=== PATIENT | male | born 1990 | race Hispanic/Latino ===

== ENCOUNTER 2017-07-20 10:16 | Emergency (ER) | payer OTHER ==
[~2017-07-20] VITALS: Ht 185.4 cm; Wt 122.5 kg
[2017-07-20] MEDS ORDERED: ATENOLOL50 MG PO (10:34)
[2017-07-20] MEDS ORDERED: ASPIR 8181 MG PO (10:34)
[2017-07-20] MEDS ORDERED: FLECAINIDE ACET50 MG PO (10:34)
[2017-07-20] MEDS ORDERED: ASPIRIN325 MG PO (10:34)
[2017-07-20 11:07] LABS: BASOPHILS % 0.5 % (0.0-1.0); EOSINOPHILS # (AUTO) 0.2 (0.0-0.4); EOSINOPHILS % 2.1 % (0.0-6.0); HEMATOCRIT 45.2 % (38.2-49.6); LYMPHOCYTES # (AUTO) 2.4 (1.0-3.2); LYMPHOCYTES % 29.9 % (18.0-39.1); MEAN CORPUSCULAR HEMOGLOBIN 28.9 pg (28-32); MEAN CORPUSCULAR HGB CONC 33.2 g/dL (31-35); MEAN CORPUSCULAR VOLUME 87.1 fL (81-99); MONOCYTES # (AUTO) 0.7 (0.2-0.8); MONOCYTES % 8.5 % (4.4-11.3); NEUTROPHILS # (AUTO) 4.8 (2.1-6.9); NEUTROPHILS % 58.8 % (38.7-80.0); PLATELET COUNT 292 x10e3/uL (140-360); RED BLOOD COUNT 5.19 x10e6/uL (4.3-5.7)
[2017-07-20 11:21] LABS: ALANINE AMINOTRANSFERASE 18 IU/L (0-55); ALBUMIN 4.2 g/dL (3.5-5.0); ALBUMIN/GLOBULIN RATIO 1.2 (0.8-2.0); ALKALINE PHOSPHATASE 56 IU/L (40-150); ANION GAP 13.3 mmol/L (8-16); BLOOD UREA NITROGEN 12 mg/dL (7-26); BUN/CREATININE RATIO 14 (6-25); CALCIUM 9.1 mg/dL (8.4-10.2); CARBON DIOXIDE 26 mmol/L (22-29); CHLORIDE 107 mmol/L (98-107); CREATINE KINASE 132 IU/L (30-200); CREATININE, SERUM 0.86 mg/dL (0.72-1.25); EST GLOMERULAR FILTRATION RATE > 60 ML/MIN (60-); GLUCOSE 81 mg/dL (74-118); POTASSIUM 4.3 mmol/L (3.5-5.1); SODIUM 142 mmol/L (136-145)
--- NOTE | 2017-07-20 11:44 | Diagnostic Imaging Report ---
PROCEDURE:CHEST SINGLE (PORTABLE) TECHNIQUE:Portable AP chest INDICATION:Chest palpitations COMPARISON:None. FINDINGS: Lungs are clear and symmetrically inflated. No pleural effusions. Normal heart size, mediastinal contour, and pulmonary vasculature for technique. Intact skeleton. CONCLUSION: Normal portable chest. Dictated by: Steve Doan M.D. on 07/20/2017 at 11:44 Electronically approved by: Steve Doan M.D. on 07/20/2017 at 11:44
[2017-07-20 12:15] VITALS: BP 116/86
== END 2017-07-20 12:22 | disposition home or self-care (01) ==
LOC: ER 10:16
DX: R00.2 Palpitations (principal); I48.91 Unspecified atrial fibrillation
CPT/HCPCS: 36415; 71045; 80053; 82550; 82553; 84484; 85025; 85379; 93005; 99284

== ENCOUNTER 2020-02-16 07:43 | Emergency (ER) | payer OTHER ==
[~2020-02-16] VITALS: Ht 185.4 cm; Wt 122.5 kg
[~2020-02-16 07:43] MED LIST: ASPIR 8181 MG PO; ASPIRIN325 MG PO; ATENOLOL50 MG PO; FLECAINIDE ACET50 MG PO
[2020-02-16] MEDS ORDERED: HYDROCODONE/APAP 7.5MG-325MG 1 EA TAB PO PRN (08:00)
[2020-02-16] MEDS ORDERED: KETOROLAC TROMETHAMINE 60 MG/2 ML VIAL IM ONE (08:00)
[2020-02-16] MEDS ORDERED: KETOROLAC TROMETHAMINE 60 MG/2 ML VIAL ONE (08:03)
--- NOTE | 2020-02-16 08:14 | Emergency Department Note ---
History of Present Illnes History of Present Illness Chief Complaint: Back Pain History of Present Illness This is a 29 year old male PATIENT IN FROM HOME WITH COMPLAINTS OF LOWER BACK PAIN RADIATING DOWN LEFT LEG. RATES PAIN 02/16. PATIENT STATES THAT IT STARTED WEDNESDAY AFTER WORK WHEN HE GOT INTO HIS TRUCK, HE WAS SEEN AT URGENT CARE WEDNESDAY AND GIVEN STEROIDS AND FLEXERIL, AND WENT TO THE CHIROPRACTOR YESTERDAY BUT THE PAIN IS GETTING WORSE. PATIENT ALERT AND ORIENTED, RESP EVEN AND NONLABORED, APPEARS IN NO DISTRESS, AMBULATORY WITH STEADY GAIT. 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 Any updates have been documented here. Past Medical History Recent Fever: No Clinical Suspicion of Infectio: No New/Unexplained Change in Ment: No Past Medical History: A-Fib Other Surgery: RIGHT ANKLE SURGERY Social History Smoking Cessation: Never Smoker Counseling Performed: No Alcohol Use: None Any Illegal Drug Use: No TB Exposure/Symptoms: No Physically hurt or threatened: No Family History Family history of heart diseas: No Other Last Tetanus: UTD Any Pre-Existing Lines (PICC,: No Review of Systems Review of Systems Constitutional: Reports no symptoms EENTM: Reports no symptoms Cardiovascular: Reports no symptoms Respiratory: Reports no symptoms Gastrointestinal: Reports no symptoms Genitourinary: Reports no symptoms Musculoskeletal: Reports as per HPI, Reports back pain Integumentary: Reports no symptoms Neurological: Reports no symptoms Psychological: Reports no symptoms Endocrine: Reports no symptoms Hematological/Lymphatic: Reports no symptoms Physical Exam Related Data Allergies: Coded Allergies: No Known Allergies (Unverified , 07/20/17) Triage Vital Signs Vital Signs Date Time Temp Pulse Resp B/P (MAP) Pulse Ox O2 Delivery O2 Flow Rate FiO2 02/16/20 07:47 97.6 75 18 133/91 100 Room Air Vital signs reviewed: Yes Physical Exam CONSTITUTIONAL Constitutional: Present well-developed, Present well-nourished HENT HENT: Present normocephalic, Present atraumatic, Present oropharynx clear/juan st, Present nose normal HENT L/R: Present left ext ear normal, Present right ext ear normal EYES Eyes: Reports PERRL, Reports conjunctivae normal NECK Neck: Present ROM normal PULMONARY Pulmonary: Present effort normal, Present breath sounds normal CARDIOVASCULAR Cardiovascular: Present regular rhythm, Present heart sounds normal, Present capillary refill normal, Present normal rate GASTROINTESTINAL Abdominal: Present soft, Present nontender, Present bowel sounds normal GENITOURINARY Genitourinary: Present exam deferred SKIN Skin: Present warm, Present dry MUSCULOSKELETAL Musculoskeletal: Present ROM normal, Present other (NEG SLR, NORMAL DTR'S, NORMAL STR/SENS) NEUROLOGICAL Neurological: Present alert, Present oriented x 3, Present DTRs normal, Present no gross motor or sensory deficits; Absent sensory deficit, Absent weakness PSYCHOLOGICAL Psychological: Present mood/affect normal, Present judgement normal Assessment & Plan Medical Decision Making MDM SCIATICA, NO HX OF TRAUMA Reassessment Reassessment CONTINUE MEDROL DOSE LAINEY, MARIAROSYN, PT HAS FLEXERIL, TYL #3 1 Q4H PRN (#16), F/U DR Dante ELLIS, ORTHO Assessment & Plan Final Impression: (1) Sciatica Depart Disposition: HOME, SELF-CARE Last Vital Signs Date Time Temp Pulse Resp B/P (MAP) Pulse Ox O2 Delivery O2 Flow Rate FiO2 02/16/20 07:47 97.6 75 18 133/91 100 Room Air Home Meds Reported Medications Aspirin (ASPIRIN) 325 Mg Tablet, 325 MG PO DAILY, #30 TAB 07/20/17 Atenolol (ATENOLOL) 50 Mg Tablet, 25 MG PO DAILY 07/20/17 Flecainide Acetate (FLECAINIDE ACETATE) 50 Mg Tablet, 50 MG PO BID 07/20/17 Medications in the ED Ketorolac Tromethamine 60 mg ONCE ONCE IM Last administered on 02/16/20at 07:56; Admin Dose 60 MG; Start 02/16/20 at 08:00; Stop 02/16/20 at 08:02; Status DC Acetaminophen/ Hydrocodone Bitart 1 ea NOW PRN PO MODERATE PAIN (4-6) Last administered on 02/16/20at 07:57; Admin Dose 1 EA; Start 02/16/20 at 08:00; Stop 02/23/20 at 07:59 Ketorolac Tromethamine 60 mg STK-MED ONCE .ROUTE ; Start 02/16/20 at 08:03; Stop 02/16/20 at 07:56; Status DC OMAYRA MENDOZA MD Feb 16, 2020 08:14
--- OUTSIDE RECORDS SUMMARY | 2020-02-16 08:20 | XMS REPORT | Continuity of Care Document ---
Author Author [facility] t Organization [facility] Address [address] [place] [address] Phone Unavailable Care Team Providers Care Maintenance Chief Name Role Phone GERARDO ISABEL MD, Lisa WEINER PCP MANEEVESMarita Mujica Attphys Unavailable Payers Payer Name Policy Type Policy Number Effective Date Expiration Date S ource Problems This patient has no known problems. Allergies, Adverse Reactions, Alerts Allergy Name Allergy Type Status Severity Reaction(s) Onset Date Inacti ve Date Treating Clinician Comments Source No Known Allergies DA Active U 2019-03-14 00:00:00 [facility] No Known Allergies DA Active U 2017-05-08 00:00:00 [facility] Medications Ordered Medication Name Filled Medication Name Start Date Stop Da te Current Medication? Ordering Clinician Indication Dosage Frequency Signature (SIG) Comments Components Source Aspirin 325 Mg Tablet Aspirin 325 Mg Tablet Yes 325 Daily [facility] Atenolol 50 Mg Tablet Atenolol 50 Mg Tablet Yes 25 Daily [facility] Flecainide Acetate 50 Mg Tablet Flecainide Acetate 50 Mg Tablet Yes 50 Twice A Day [facility] Aspirin (Aspir 81) 81 Mg Tablet.dr 81 Mg Oral Aspirin (Aspir 81) 81 Mg Tablet.dr 81 Mg Oral 2017-07-20 00:00:00 No 81 Da alexander [facility] Procedures This patient has no known procedures. Encounters Start Date/Time End Date/Time [facility]counter Type [facility] ID Source 2017-07-20 10:16:00 2017-07-20 12:22:00 Departed Emergency Room ER EUNICE GUERRERO [facility] [id number] [facility] Results Test Description Test Time Test Comments Results Result Comments Source STREPTOCOCCUS PCR SCREEN 2019-05-14 23:05:00 Test Item STREPTOCOCCUS DYSGALACTIAE (test code = STREPGC) NEGATIVE FOR G/C N EGATIVE STREPA MOLECULAR (test code = STREPAMOL) NEGATIVE FOR GRP A NEGATIV E - XR FLUOROSCOPY 0-60 [id number] 16:28:00 Name: DILLAN ALVAREZ : 1990 Age/S: 28 / M [address] [address] [place] Unit #: [id number] Loc: [place] [address] Phys: Bc Reeder MD Acct: [id number] Dis Date: Status: REG [facility] PHONE #: [phone] Exam Date: 03/28/2019 1600 FAX #: Reason: ORIF RIGHT ANKLE FX EXAMS: CPT: [id number] XR FLUOROSCOPY 0-60 MIN 99026 Fluoro Time: 56 DAP (Gy m2): Air Kerma (mGy): EXAMINATION: - XR FLUOROSCOPY 0-60 MIN. LOCATION: S 17. HISTORY: ORIF RIGHT ANKLE FX. TECHNIQUE: Intraoperative fluoroscopy was utilized during surgery. Total reference air kerma was 2.46 mGy. FINDINGS/ IMPRESSION: Intraoperative fluoroscopy was utilized during right ankle surgery. Please refer to operative report for detail. at 1628 Reported and signed by: Merle Jimenez M.D. CC: Bc Reeder MD PAGE 1 Signed Report Name: DILLAN ALVAREZ : 1990 Age/S: 28 / M [address] [address] [place] Unit #: [id number] Loc: [place] [address] Phys: Bc Reeder MD Acct: [id number] Dis Date: Status: REG [facility] PHONE #: [phone] Exam Date: 03/28/2019 1600 FAX #: Reason: ORIF RIGHT ANKLE FX EXAMS: CPT: [id number] XR FLUOROSCOPY 0-60 MIN 87874 Fluoro Time: 56 DAP (Gy m2): Air Kerma (mGy): < Continued> Technologist: Shanae Mittal, RT(R); Martha Navarrete RT(R) [facility] Date/Time: 03/28/2019 (9639) [email or web address] Orig Print D/T: S: 03/28/2019 (4884) PAGE 2 Signed Report DRUG SCREEN CO.[id number] 07:57:00* Test Item Value Reference Range Interpretation Comments DRUG SCREEN CO.CARE (test code = DAUCC) SENT TO [facility] BREATH ALCOHOL [id number] 07:57:00* Test Item Value Reference Range Interpretation Comments BREATH ALCOHOL TEST (test code = BAT2) SEE REPORT - XR ANKLE 2 VIEWS [id number] 22:11:00 FAX: Evelin Whaley MD [phone] [place]: St: REG Name: DILLAN CONNOLLY [facility] : [birth year] Age/S: 28/M [address] [facility] Unit #: [id number] Loc: [place] [address] Phys: Evelin Whaley MD Acct: [id number] Dis Date: Status: REG ER PHONE #: [phone] Exam Date: 03/14/20192201 FAX #: [phone] Reason: post reduction EXAMS: CPT CODE: [id number] XR ANKLE [address] [place] [address] REASON FOR EXAM: post reduction EXAM ORDER DATE: 03/14/2019 10:00 PM Ordering: Evelin Whaley MD Attending:Evelin Whaley MD Location: PROCEDURE: - XR ANKLE 2 VIEWS RT FINDI NGS: 3 views of the right ankle were obtained. Overlying casting material noted. Mild soft tissue swelling in the lateral malleolus. Again noted is the oblique fracture of the distal right fibula and the posterior fract ure of the distal right tibia IMPRESSION: Anatomical alignment o f the right ankle status post reduction Electronically Sujey d by Beau Shea on 03/14/2019 at 2211 Reported and sig franco by: Phong Shea M.D. CC: Evelin Whaley MD Technologist: Jose Tucker RT(R Trnscrd Date/Time/By: 03/14/2019 (2210) : By: MarkL Orig Print D/T: S: 03/14/2019 (1171) PAGE 1 Signed Report DRUG SCREEN CO.[id number] 19:26:00* Test Item Value Reference Range Interpretation Comments DRUG SCREEN CO.CARE (test code = DAUCC) BREATH ALCOHOL [id number] 19:26:00* Test Item Value Reference Range Interpretation Comments BREATH ALCOHOL TEST (test code = BAT2) SEE REPORT - XR ANKLE 3 + V [id number] 18:15:00 FAX: Stephan Coughlin NP [place]: B St: REG FAX: Evelin Whaley MD [phone] Name: DILLAN ALVAREZ [facility] : 1990 Age/S: 28/M [address] [facility] Unit #: [id number] Loc: [place] [address] Phys: Stephan Coughlin NP Acct: [id number] Dis Date: Status: REG ER PHONE #: [phone] Exam Date: 03/14/2019 1806 FAX #: [phone] Reason: R ankle eversion EXAMS: CPT CODE: [id number] XR ANKLE 3 + V RT 42726 REASON FOR EXAM: R ankle eversion EXAM ORDER DATE: 03/14/2019 5:43 PM Ordering Beau: Stephan Coughlin NP Location: PROCEDURE: - XR ANKLE 3 + V RT FINDINGS: 3 views of the right ankle were obtained. Oblique minimally displaced distal right fibular fracture at the ankle mortise level. Minimally displaced vertical fracture of the posterior right tibia at the joint space. IMPRESSION: Oblique fracture of the distal right fibula with disruption of the ankle mortise. Minimally displaced verti alfonso fracture of the posterior right tibia. Electronically Si gned by Beau Shea on 03/14/2019 at 1814 Reported and signed by: Phong Shea M.D. CC: Stephan Coughlin NP; Ijeoma Whaley MD Technologist: HOWARD PRADO Trncord Date/Time/By: 03/14/2019 (1814) : By: VondaVTL Orig Print D/T: S: 03/14/2019 (1817) PAGE 1 Signed Report - XR KNEE 3 V [id number] 18:13:00 FAX: Stephan Coughlin NP [place]: St: REG FAX: Evelin Whaley MD [phone] Name: DILLAN ALVAREZ [facility] : 1990 Age/S: 28/M [address] [facility] Unit #: [id number] Loc: [place] [address] Phys: Stephan Coughlin NP Acct: [id number] Dis Date: Status: REG ER PHONE #: [phone] Exam Date: 03/14/2019 180 FAX #: [phone] Reason: R ankle eversion w/ knee pain EXAMS: CPT CODE: [id number] XR KNEE 3 [place] [address] REASON FOR EXAM: R ankle eversion w/ knee pain EXAM ORDER DATE: 03/14/2019 5:43 PM Ordering Beau: Stephan Coughlin NP Location: PROCEDURE: - XR KNEE 3 V RT FINDINGS: 3 views of the right knee were obtained. The osseous structures are unremarkable in size and shape. The joint spaces are maintained. No evidence of fracture. The patella is intact IMPRESSION: Small joint effusion. No acute osseous abnormality at 1813 Reported and signed by: Phong Shea M.D. CC: Stephan Coughlin NP; Evelin Whaley MD Technologist: HOWARD PRADO Trnscrd Date/Time/By: 03/14/2019 (1812) : By: MarkL Orig Print D/T: S: 03/14/2019 (1815) PAGE 1 Signed Report Creatine Kinase MB 2017-07-20 11:29:00* Test Item Value Reference Range Interpretation Comments Creatine Kinase MB (test code = 61116-2) 1.20 0-5.0 [facility]Troponin [id number] 11:29:00* Test Item Value Reference Range Interpretation Comments Troponin I (test code = VKL1651) -0.001 0-0.300 [facility] [id number] 11:22:00* Test Item Value Reference Range Interpretation Comments Sodium Level (test code = 2951-2) 142 136-145 [facility] HospitalPotassium [id number] 11:22:00* Test Item Value Reference Range Interpretation Comments Potassium Level (test code = 2823-3) 4.3 3.5-5.1 [facility] HospitalChloride [id number] 11:22:00* Test Item Value Reference Range Interpretation Comments Chloride Level (test code = 2075-0) 107 98-107 [facility] HospitalCarbon Dioxide [id number] 11:22:00* Test Item Value Reference Range Interpretation Comments Carbon Dioxide Level (test code = 2028-9) 26 22-29 [facility] HospitalAnion [id number] 11:22:00* Test Item Value Reference Range Interpretation Comments Anion Gap (test code = 89578-9) 13.3 8-16 [facility] HospitalBlood Urea [id number] 11:22:00* Test Item Value Reference Range Interpretation Comments Blood Urea Nitrogen (test code = 3094-0) 12 7-26 [facility] HospitalCreatinine2018-03-13 11:22:00* Test Item Value Reference Range Interpretation Comments Creatinine (test code = 2160-0) 0.86 0.72-1.25 [facility] HospitalBUN/Creatinine Fgwui4379-40-57 11:22:00* Test Item Value Reference Range Interpretation Comments BUN/Creatinine Ratio (test code = 3097-3) 14 11-01 [facility] HospitalEstimat Glomerular Filtration Rate 2017-07-20 11:22:00* Test Item Value Reference Range Interpretation Comments Estimat Glomerular Filtration Rate (test code = 79198-1) 60- >60 Ranges were taken from the National Kidney Disease Education Program and the [facility] Foundation literature.Reference ranges:60 or greater: Icrxzn59-25 ( for 3 consecutive months): Chronic kidney disease 15 or less: Kidney failureHill Country Memorial HospitalGlucose Bkgkc9085-82-69 11:22:00* Test Item Value Reference Range Interpretation Comments Glucose Level (test code = TSA5279) 81 74-118 [facility] HospitalCalcium Peyze4679-57-76 11:22:00* Test Item Value Reference Range Interpretation Comments Calcium Level (test code = 94003-5) 9.1 8.4-10.2 [facility] HospitalTotal Hywzdepga6575-87-60 11:22:00* Test Item Value Reference Range Interpretation Comments Total Bilirubin (test code = 1975-2) 0.5 0.2-1.2 [facility] HospitalAspartate Amino Transf (AST/SGOT) 2017-07-20 11:22:00* Test Item Value Reference Range Interpretation Comments Aspartate Amino Transf (AST/SGOT) (test code = Aspartate Amino Transf (AST/SGOT)) 21 5-34 [facility] HospitalAlanine Aminotransferase (ALT/SGPT) 2017-07-20 11:22:00* Test Item Value Reference Range Interpretation Comments Alanine Aminotransferase (ALT/SGPT) (test code = 1742-6) 18 0-55 [facility] HospitalTotal Xsyaugp7169-98-04 11:22:00* Test Item Value Reference Range Interpretation Comments Total Protein (test code = 2885-2) 7.8 6.5-8.1 [facility] HospitalAlbumin2018-03-13 11:22:00* Test Item Value Reference Range Interpretation Comments Albumin (test code = 1751-7) 4.2 3.5-5.0 [facility] HospitalGlobulin2018-03-13 11:22:00* Test Item Value Reference Range Interpretation Comments Globulin (test code = 12968-2) 3.6 2.3-3.5 H [facility] HospitalAlbumin/Globulin Rrypn5490-65-26 11:22:00 * Test Item Value Reference Range Interpretation Comments Albumin/Globulin Ratio (test code = 1759-0) 1.2 0.8-2.0 [facility] HospitalAlkaline Kvlxjlxfghh7139-28-08 11:22:00* Test Item Value Reference Range Interpretation Comments Alkaline Phosphatase (test code = 6768-6) 56 40-150 [facility] HospitalCreatine Cgkpjn3936-69-85 11:22:00* Test Item Value Reference Range Interpretation Comments Creatine Kinase (test code = 2157-6) 132 30-200 [facility] HospitalD-Dimer Quantitative (PE/DVT)2017-07-20 11:15:00* Test Item Value Reference Range Interpretation Comments D-Dimer Quantitative (PE/DVT) (test code = 78462-1) 0.36 0. 00-0.45 [facility] HospitalWhite Blood [id number] 11:09:00* Test Item Value Reference Range Interpretation Comments White Blood Count (test code = 6690-2) 8.14 4.8-10.8 [facility] HospitalRed Blood [id number] 11:09:00* Test Item Value Reference Range Interpretation Comments Red Blood Count (test code = 789-8) 5.19 4.3-5.7 [facility] HospitalHemoglobin2018-03-13 11:09:00* Test Item Value Reference Range Interpretation Comments Hemoglobin (test code = 51401-5) 15.0 14.0-18.0 [facility] HospitalHematocrit2018-03-13 11:09:00* Test Item Value Reference Range Interpretation Comments Hematocrit (test code = 4544-3) 45.2 38.2-49.6 [facility] HospitalMean Corpuscular Iaximo9097-38-08 11:09:00* Test Item Value Reference Range Interpretation Comments Mean Corpuscular Volume (test code = 787-2) 87.1 81-99 [facility] HospitalMean Corpuscular Foszgvpxlx6033-14-24 11:09:00* Test Item Value Reference Range Interpretation Comments Mean Corpuscular Hemoglobin (test code = 785-6) 28.9 28-32 [facility] Corpuscular Hemoglobin Concent 2017-07-20 11:09:00* Test Item Value Reference Range Interpretation Comments Mean Corpuscular Hemoglobin Concent (test code = 786-4) 33.2 31-35 [facility] HospitalRed Cell Distribution Lfnme5159-34-04 11:09:00* Test Item Value Reference Range Interpretation Comments Red Cell Distribution Width (test code = 54425-6) 13.0 11.7 -14.4 [facility] HospitalPlatelet Qxmze2169-38-41 11:09:00* Test Item Value Reference Range Interpretation Comments Platelet Count (test code = 777-3) 292 140-360 [facility] HospitalNeutrophils (%) (Auto)2017-07-20 11:09:00 * Test Item Value Reference Range Interpretation Comments Neutrophils (%) (Auto) (test code = 45825-9) 58.8 38.7-80.0 [facility] HospitalLymphocytes (%) (Auto)2017-07-20 11:09:00 * Test Item Value Reference Range Interpretation Comments Lymphocytes (%) (Auto) (test code = 736-9) 29.9 18.0-39.1 [facility] HospitalMonocytes (%) (Auto)2017-07-20 11:09:00* Test Item Value Reference Range Interpretation Comments Monocytes (%) (Auto) (test code = 5905-5) 8.5 4.4-11.3 [facility] HospitalEosinophils (%) (Auto)2017-07-20 11:09:00 * Test Item Value Reference Range Interpretation Comments Eosinophils (%) (Auto) (test code = 713-8) 2.1 0.0-6.0 [facility] HospitalBasophils (%) (Auto)2017-07-20 11:09:00* Test Item Value Reference Range Interpretation Comments Basophils (%) (Auto) (test code = 706-2) 0.5 0.0-1.0 [facility] HospitalIM GRANULOCYTES %2017-07-20 11:09:00* Test Item Value Reference Range Interpretation Comments IM GRANULOCYTES % (test code = IM GRANULOCYTES %) 0.2 0.0- 1.0 [facility] HospitalNeutrophils # (Auto)2017-07-20 11:09:00* Test Item Value Reference Range Interpretation Comments Neutrophils # (Auto) (test code = 751-8) 4.8 2.1-6.9 [facility] HospitalLymphocytes # (Auto)2017-07-20 11:09:00* Test Item Value Reference Range Interpretation Comments Lymphocytes # (Auto) (test code = 27053-5) 2.4 1.0-3.2 [facility] HospitalMonocytes # (Auto)2017-07-20 11:09:00* Test Item Value Reference Range Interpretation Comments Monocytes # (Auto) (test code = 742-7) 0.7 0.2-0.8 [facility] HospitalEosinophils # (Auto)2017-07-20 11:09:00* Test Item Value Reference Range Interpretation Comments Eosinophils # (Auto) (test code = 711-2) 0.2 0.0-0.4 [facility] HospitalBasophils # (Auto)2017-07-20 11:09:00* Test Item Value Reference Range Interpretation Comments Basophils # (Auto) (test code = 704-7) 0.0 0.0-0.1 [facility] HospitalAbsolute Immature Granulocyte (auto 2017-07-20 11:09:00* Test Item Value Reference Range Interpretation Comments Absolute Immature Granulocyte (auto (michael t code = Absolute Immature Granulocyte (auto) 0.02 0-0.1 [facility] HospitalCHEST SINGLE (PORTABLE) [facility] [address] [place] [address] Patient Name: DILLAN ALVAREZ MR #: [id number] : 1990 Age/Sex: 26/M Req #: [id number] Adm Physician: Ordered by: EUNICE GUERRERO MD Report #: [id number] Location: [facility]/Bed: Procedure: [id number] DX/CHEST SINGLE (PORTAB LE) Exam Date: 07/20/17 Exam Time: 1100 REPORT STATUS: Signed PROCEDURE: CHEST SINGLE (PORTABLE) TECHNIQUE: Portable AP chest INDICATION: Chest palpitations COMPARISON: None. FINDINGS : Lungs are clear and symmetrically inflated. No pleural effusions. Normal heart size, mediastinal contour, and pulmonary vasculature for technique. Int act skeleton. CONCLUSION: Normal portable chest. Dicta erin by: Simran Doan M.D. on 07/20/2017 at 11:44 Electronically ap proved by: Simran Doan M.D. on 07/20/2017 at 11:44 Dic tated By: SIMRAN DOAN MD [id number] COPY TO: PRINCE GUERRERO MD
== END 2020-02-16 08:22 | disposition home or self-care (01) ==
LOC: ER 08:05
DX: M54.42 Lumbago with sciatica, left side (principal); I48.91 Unspecified atrial fibrillation
CPT/HCPCS: 99283; J1885